=== PATIENT | male | born 2000 | race Hispanic/Latino ===

== ENCOUNTER 2018-06-01 09:55 | Emergency (ER) | payer MEDICAID ==
--- NOTE | 2018-06-01 11:08 | Emergency Department Report ---
ED Psych HPI - General Chief Complaint: Psych Stated Complaint: SUICIDAL THOUGHTS Time Seen by Provider: 06/01/18 10:47 Source: patient Mode of arrival: Ambulatory Limitations: No Limitations - History of Present Illness Initial Comments: Patient said he started Suicidal thoughts this morning. He also says he has history of depression, schizoaffective disorder, schizophrenia and bipolar disorder. MD Complaint: suicidal ideation, feels depressed -: Sudden, This morning Associated Psychiatric Symptoms: depression, suicidal ideation History of same: Yes Quality: constant Improves With: none Worsens With: none Associated Symptoms: denies other symptoms Treatments Prior to Arrival: none If Self Harm: admits thoughts of - Related Data Home Medications Medication Instructions Recorded Confirmed Last Taken Clonidine HCl [Catapres] 0.1 mg BID 06/01/18 06/01/18 06/01/18 07:00 Diphenhydramine HCl [Nighttime 50 mg PO HS 06/01/18 06/01/18 05/31/18 20:00 Sleep Aid 50MG] FLUoxetine HCL [Fluoxetine HCl] 20 mg PO DAILY 06/01/18 06/01/18 06/01/18 07:00 Haloperidol [Haldol] 5 mg PO 06/01/18 06/01/18 05/31/18 20:00 Haloperidol [Haldol] 10 mg PO [facility] 06/01/18 06/01/18 06/01/18 07:00 Lisinopril [Prinivil] 5 mg PO DAILY 06/01/18 06/01/18 06/01/18 07:00 Metformin HCl 500 mg PO BID 06/01/18 06/01/18 06/01/18 07:00 Pantoprazole Sodium 40 mg PO BID 06/01/18 06/01/18 06/01/18 07:00 hydrOXYzine PAMOATE [Vistaril] 50 mg PO BID 06/01/18 06/01/18 06/01/18 07:00 hydroCHLOROthiazide 25 mg PO DAILY 06/01/18 06/01/18 06/01/18 07:00 [Hydrochlorothiazide] Previous Rx's Medication Instructions Recorded Last Taken Type Ciprofloxacin HCl [Cipro] 500 mg PO BID #20 tablet 06/01/18 Unknown Rx Allergies Allergy/AdvReac Type Severity Reaction Status Date / Time cefprozil [From Cefzil] Allergy Mild Rash Verified 06/01/18 12:50 ED Review of Systems ROS: Stated complaint: SUICIDAL THOUGHTS Other details as noted in HPI Comment: All other systems reviewed and negative Constitutional: denies: chills, fever Eyes: denies: eye pain ENT: denies: ear pain Respiratory: denies: cough, orthopnea, shortness of breath Cardiovascular: denies: chest pain, palpitations, dyspnea on exertion, syncope Endocrine: no symptoms reported Gastrointestinal: denies: abdominal pain, nausea, vomiting, diarrhea, constipation, hematemesis Genitourinary: denies: urgency, dysuria, frequency Musculoskeletal: denies: back pain, joint swelling Skin: denies: rash, lesions Neurological: denies: headache, weakness, numbness, paresthesias, confusion, abnormal gait Psychiatric: depression, suicidal thoughts. denies: anxiety, auditory hallucinations, visual hallucinations, homicidal thoughts Hematological/Lymphatic: denies: easy bleeding, easy bruising ED Past Medical Hx - Medications Home Medications: Home Medications Medication Instructions Recorded Confirmed Last Taken Type Ciprofloxacin HCl [Cipro] 500 mg PO BID #20 tablet 06/01/18 Unknown Rx Clonidine HCl [Catapres] 0.1 mg BID 06/01/18 06/01/18 06/01/18 07:00 History Diphenhydramine HCl [Nighttime 50 mg PO HS 06/01/18 06/01/18 05/31/18 20:00 History Sleep Aid 50MG] FLUoxetine HCL [Fluoxetine HCl] 20 mg PO DAILY 06/01/18 06/01/18 06/01/18 07:00 History Haloperidol [Haldol] 5 mg PO HS 06/01/18 06/01/18 05/31/18 20:00 History Haloperidol [Haldol] 10 mg PO QA 06/01/18 06/01/18 06/01/18 07:00 History Lisinopril [Prinivil] 5 mg PO DAILY 06/01/18 06/01/18 06/01/18 07:00 History Metformin HCl 500 mg PO BID 06/01/18 06/01/18 06/01/18 07:00 History Pantoprazole Sodium 40 mg PO BID 06/01/18 06/01/18 06/01/18 07:00 History hydrOXYzine PAMOATE [Vistaril] 50 mg PO BID 06/01/18 06/01/18 06/01/18 07:00 History hydroCHLOROthiazide 25 mg PO DAILY 06/01/18 06/01/18 06/01/18 07:00 History [Hydrochlorothiazide] ED Physical Exam - General General appearance: alert, in no apparent distress, obese - Head Head exam: Present: atraumatic, normocephalic, normal inspection - Eye Eye exam: Present: normal appearance, PERRL, EOMI Pupils: Present: normal accommodation - ENT ENT exam: Present: normal exam, normal orophraynx, mucous membranes moist - Neck Neck exam: Present: normal inspection, full ROM. Absent: tenderness - Respiratory Respiratory exam: Present: normal lung sounds bilaterally. Absent: respiratory distress, wheezes, rales, rhonchi, stridor - Cardiovascular Cardiovascular Exam: Present: normal rhythm, tachycardia, normal heart sounds - GI/Abdominal GI/Abdominal exam: Present: soft, normal bowel sounds. Absent: distended, tenderness, guarding, rebound, rigid - Extremities Exam Extremities exam: Present: normal inspection, full ROM, normal capillary refill. Absent: tenderness - Back Exam Back exam: Present: normal inspection, full ROM. Absent: tenderness - Neurological Exam Neurological exam: Present: alert, oriented X3, CN II-XII intact - Psychiatric Psychiatric exam: Present: normal affect, depressed, suicidal ideation. Absent : agitated, anxious, flat affect, manic, homicidal ideation - Skin Skin exam: Present: warm, dry, intact, normal color. Absent: rash ED Course Vital Signs 06/01/18 10:40 Temperature 97.5 F L Pulse Rate 104 H Respiratory 20 Rate Blood Pressure 114/57 Blood Pressure 114/57 [Right] O2 Sat by Pulse 96 Oximetry - Reevaluation(s) Reevaluation #1: 06/01/18 18:28 Patient is medically cleared for psychiatric evaluation. ED Medical Decision Making - Lab Data Result diagrams: 06/01/18 12:06 06/01/18 17:00 - Medical Decision Making Suicide Ideation. Critical care attestation.: If time is entered above; I have spent that time in minutes in the direct care of this critically ill patient, excluding procedure time. ED Disposition Clinical Impression: Suicide ideation, History of depression, History of schizophrenia, History of schizoaffective disorder, History of depressed bipolar disorder UTI (urinary tract infection) Qualifiers: Urinary tract infection type: acute cystitis Hematuria presence: without hematuria Qualified Code(s): N30.00 - Acute cystitis without hematuria Disposition: DC/TX-65 PSY HOSP/PSY UNIT Is pt being admited?: No Does the pt Need Aspirin: No Condition: Stable Prescriptions: Ciprofloxacin HCl [Cipro] 500 mg PO BID #20 tablet Referrals: PRIMARY CARE [Primary Care Provider] - 3-5 Days Time of Disposition: 18:28
[2018-06-01 11:28] LABS: Bacteria,Urine 1+ /HPF (Negative); Bilirubin,Urine NEG (Negative); Blood,Urine SM (Negative); Color,Urine Amber (Yellow); Hyaline Casts,Urine 1 /LPF; Mucus,Urine FEW /HPF
[2018-06-01 11:34] LABS: Amphetamine Screen,Urine PRESUMPTIVE NEGATIVE; Benzodiazepines Screen,Urine PRESUMPTIVE NEGATIVE; Cannabinoid Screen,Urine PRESUMPTIVE NEGATIVE; Cocaine Screen,Urine PRESUMPTIVE NEGATIVE; Methadone Screen,Urine PRESUMPTIVE NEGATIVE; Opiate Screen,Urine PRESUMPTIVE NEGATIVE
[2018-06-01 12:43] LABS: Basophils % (Auto) 0.6 % (0.0-1.8); Hematocrit 46.7 % (35.5-45.6); Hemoglobin 15.8 gm/dl (11.8-15.2); Lymphocytes # (Auto) 0.8 K/mm3 (1.2-5.4); Lymphocytes % (Auto) 11.9 % (13.4-35.0); Mean Corpuscular HGB Conc 34 % (32-34); Mean Corpuscular Hemoglobin 29 pg (28-32); Mean Corpuscular Volume 85 fl (84-94); Monocytes # (Auto) 0.6 K/mm3 (0.0-0.8); Monocytes % (Auto) 8.3 % (0.0-7.3); Platelet Count 261 K/mm3 (140-440); Red Blood Count 5.47 M/mm3 (3.65-5.03); Red Cell Distribution Width 13.5 % (13.2-15.2)
[2018-06-01] MEDS ORDERED: ZOFRAN ODT PO ONE (12:46)
[2018-06-01 12:50] LABS: Albumin 5.3 g/dL (3.9-5); Calcium 10.4 mg/dL (8.4-10.2)
[2018-06-01] MEDS ORDERED: NACL 0.9% 1000 ML 1,000 ML IV ONE ×2 (12:53)
[2018-06-01] MEDS ORDERED: LEVAQUIN 750MG/150ML 750 MG/150 ML BAG IV ONE (12:53)
--- NOTE | 2018-06-01 15:07 | Cat Scan Report ---
FINAL REPORT EXAM: CT ABDOMEN PELVIS WO CON HISTORY: Vomiting TECHNIQUE: CT of the abdomen and pelvis was performed without intravenous contrast. Reconstructions were included in the coronal and sagittal planes. PRIORS: None. FINDINGS: Lower thorax: The lung bases are clear. The visualized portions of the heart are normal. Liver: The liver is diffusely low in attenuation consistent with hepatic steatosis. The liver is enlarged measuring 20.5 centimeters. No intrahepatic biliary duct dilation. No focal hepatic lesions. Gallbladder/ biliary system: No cholelithiasis. The common bile duct appears nondilated. Spleen: No splenic lesions are seen. Pancreas: No pancreatic lesions are seen. No pancreatic duct dilation. Kidneys: No renal masses, cysts or hydronephrosis. No renal or ureteral calcifications. Adrenal glands: No adrenal masses. Vasculature: The abdominal aorta is nondilated. Lymph nodes: No enlarged lymph nodes are seen in the abdomen or pelvis. Bowel, mesentery, peritoneum: No bowel obstruction. No free fluid or free air. The appendix is normal. No colonic diverticulosis. No bowel wall thickening. Urinary bladder: There is diffuse urinary bladder wall thickening. Pelvis: Normal anatomy is noted. No masses. Abdominal wall: No abdominal wall hernia or other subcutaneous findings. Bones: Bilateral L5 pars interarticularis defects are seen. There is minimal grade 1 anterolisthesis of L5 on S1. there are bilateral L2 pars interarticularis defects. No spondylolisthesis is seen at this level. IMPRESSION: 1. Hepatic steatosis and hepatomegaly. 2. Diffuse urinary bladder wall thickening which can be seen in cystitis or bladder outlet obstruction. 3. Bilateral L5 pars interarticularis defects with grade 1 anterolisthesis of L5 on S1. Bilateral L2 pars interarticularis defects without spondylolisthesis.
[2018-06-01 18:02] LABS: BUN/Creatinine Ratio 21; Blood Urea Nitrogen 31 mg/dL (9-20); Calcium 9.3 mg/dL (8.4-10.2); Hemolysis Index 6
[2018-06-02 02:00] VITALS: BP 121/85
== END 2018-06-02 01:50 ==
LOC: ED 09:55
DX: N39.0 Urinary tract infection, site not specified (principal); F31.9 Bipolar disorder, unspecified; F25.9 Schizoaffective disorder, unspecified; Z88.8 Allergy status to other drugs, medicaments and biological substances
CPT/HCPCS: 36415; 74176; 80048; 80053; 80307; 81001; 82550; 84443; 85025; 96365; 99285; G0480; J1956; J7030; 80320; 96366; Q0162

== ENCOUNTER 2018-06-07 18:14 | Emergency (ER) | payer MEDICAID ==
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
[2018-06-07 19:12] LABS: Basophils % (Auto) 0.5 % (0.0-1.8); Hematocrit 39.9 % (35.5-45.6); Hemoglobin 13.5 gm/dl (11.8-15.2); Lymphocytes # (Auto) 1.4 K/mm3 (1.2-5.4); Lymphocytes % (Auto) 25.8 % (13.4-35.0); Mean Corpuscular HGB Conc 34 % (32-34); Mean Corpuscular Hemoglobin 29 pg (28-32); Mean Corpuscular Volume 86 fl (84-94); Monocytes # (Auto) 0.6 K/mm3 (0.0-0.8); Monocytes % (Auto) 9.9 % (0.0-7.3); Platelet Count 181 K/mm3 (140-440); Red Blood Count 4.66 M/mm3 (3.65-5.03); Red Cell Distribution Width 12.9 % (13.2-15.2)
[2018-06-07 19:41] LABS: Alanine Aminotransferase 221 units/L (7-56); Albumin 4.7 g/dL (3.9-5); BUN/Creatinine Ratio 15; Blood Urea Nitrogen 22 mg/dL (9-20); Calcium 9.5 mg/dL (8.4-10.2)
[2018-06-07 19:41] LABS: Bilirubin,Urine NEG (Negative); Blood,Urine NEG (Negative); Color,Urine Amber (Yellow); Hyaline Casts,Urine 31 /LPF; Mucus,Urine FEW /HPF
[2018-06-07 19:42] LABS: Hemolysis Index 10
[2018-06-07 19:47] LABS: Amphetamine Screen,Urine PRESUMPTIVE NEGATIVE; Benzodiazepines Screen,Urine PRESUMPTIVE NEGATIVE; Cannabinoid Screen,Urine PRESUMPTIVE NEGATIVE; Cocaine Screen,Urine PRESUMPTIVE NEGATIVE; Methadone Screen,Urine PRESUMPTIVE NEGATIVE; Opiate Screen,Urine PRESUMPTIVE NEGATIVE
[2018-06-07] MEDS ORDERED: K-DUR PO ONE (20:35)
[2018-06-07] MEDS: GLUCOPHAGE PO SCH (20:51)
[2018-06-07] MEDS: BENADRYL PO SCH (22:01)
[2018-06-07] MEDS: CATAPRES PO SCH (22:01)
[2018-06-07] MEDS: VISTARIL PO SCH (22:02)
[2018-06-07] MEDS: HALDOL PO SCH (22:02)
[2018-06-08] MEDS: GLUCOPHAGE PO SCH ×2 (08:45→17:01)
[2018-06-08] MEDS: CATAPRES PO SCH ×2 (09:36→23:37)
[2018-06-08] MEDS: HCTZ PO SCH (09:36)
[2018-06-08] MEDS: PROzac PO SCH (09:36)
[2018-06-08] MEDS: ZESTRIL PO SCH (09:36)
[2018-06-08] MEDS: HALDOL PO SCH ×2 (09:36→23:37)
[2018-06-08] MEDS: VISTARIL PO SCH ×2 (09:36→23:37)
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
[2018-06-08] MEDS: BENADRYL PO SCH (23:36)
[2018-06-09] MEDS: GLUCOPHAGE PO SCH ×2 (11:50→19:03)
[2018-06-09] MEDS: VISTARIL PO SCH ×2 (11:50→22:41)
[2018-06-09] MEDS: CATAPRES PO SCH ×2 (11:50→22:41)
[2018-06-09] MEDS: PROzac PO SCH (11:50)
[2018-06-09] MEDS: ZESTRIL PO SCH (11:50)
[2018-06-09] MEDS: HCTZ PO SCH (11:50)
--- NOTE | 2018-06-09 12:28 | Progress Note ---
Subjective - Reason for Consult Consult date: 06/09/18 Reason for consult: Psychiatry Follow-up - Chief Complaint Chief complaint: "I don't know what to think" 17-year-old male who presents to the emergency room with SI/HI's. Today the patient is calm during the assessment. He stated that he isn't sure if he want to kill himself when asked. He denies HI's. He could not elaborate why he maybe suicidal. He stated that he was hearing voices yesterday telling him to harm himself. He denies a suicide plan. He acknowledged a previous suicide attempt in the past. He denies VH's. He denies any side effects of his medications. Mental Status Exam - Vital signs Last Vital Signs Temp 98.2 F 06/08/18 20:31 Pulse 77 06/08/18 23:37 Resp 16 06/08/18 20:31 BP 113/58 06/08/18 23:37 Pulse Ox 100 06/08/18 20:31 - Exam Narrative exam: MSE: Appearance: calm Behavior: regular eye contact Speech: regular rate and tone Mood: "I don't know" Affect: dysphoric Thought Process: circumstantial Thought Content: denies HI's and VH's, intermittent AH's Motor Activity: sitting up in the bed Cognition: A/O x 3 Insight: poor Judgment: poor Assessment and Plan Impression: Hx of Schizoaffective DO. Today the patient is calm during the assessment. The patient would not confirm or deny SI's. DDx: R/O Bipolar DO with psychosis Recommendations/Plan: Initiate 1013 with placement to inpatient psy services. Continue home medications Clonidine 0.1 mg PO Q12hrs for anxiety, Prozac 20 mg PO QAM for depression/anxiety, Benadryl 50 mg PO HS for sleep/prevention for eps prevention, Haldol 10 mg PO QAM for psychosis, and Haldol 5 mg PO HS for psychosis. Discussed possible sucidality/medication induced mikaela reference Prozac with the patient.
[2018-06-09] MEDS: BENADRYL PO SCH (22:42)
[2018-06-09] MEDS: HALDOL PO SCH (23:00)
[2018-06-10] MEDS: HALDOL PO SCH ×3 (07:46→22:36)
[2018-06-10] MEDS: GLUCOPHAGE PO SCH ×2 (09:05→17:11)
[2018-06-10] MEDS: CATAPRES PO SCH ×2 (11:02→22:34)
[2018-06-10] MEDS: VISTARIL PO SCH ×2 (11:03→22:36)
[2018-06-10] MEDS: PROzac PO SCH (11:03)
[2018-06-10] MEDS: ZESTRIL PO SCH (11:03)
[2018-06-10] MEDS: HCTZ PO SCH (11:03)
--- NOTE | 2018-06-10 13:32 | Progress Note ---
Subjective - Reason for Consult Consult date: 06/10/18 Reason for consult: Psychiatry Follow-up - Chief Complaint Chief complaint: "I think I'm getting better" 17-year-old male who presents to the emergency room with SI/HI's. Today the patient is calm and cooperative during the assessment. He stated that he "maybe" getting better. He stated that he will handle issues in a different manner at his long term (emotional trigger). He denies SI/HI's and AVH's. He denies any side effects of his medications. He denies any abuse from staff or occupants at his long term. Mental Status Exam - Vital signs Last Vital Signs Temp 98.1 F 06/09/18 21:00 Pulse 104 H 06/10/18 11:03 Resp 18 06/09/18 21:00 BP 126/85 06/10/18 11:03 Pulse Ox 98 06/09/18 21:00 - Exam Narrative exam: MSE: Appearance: calm, cooperative Behavior: regular eye contact Speech: regular rate and tone Mood: "better" Affect: congruent to mood Thought Process: circumstantial Thought Content: denies SI/HI's and AVH's Motor Activity: sitting up in the bed Cognition: A/O x 3 Insight: variable Judgment: variable Assessment and Plan Impression: Hx of Schizoaffective DO. Today the patient is calm and cooperative during the assessment. DDx: R/O Bipolar DO with psychosis Recommendations/Plan: Reevaluate 1013 in 24 hours to determine proper dispo. Continue home medications Clonidine 0.1 mg PO Q12hrs for anxiety, Prozac 20 mg PO QAM for depression/anxiety, Benadryl 50 mg PO HS for sleep/prevention for eps prevention, Haldol 10 mg PO QAM for psychosis, and Haldol 5 mg PO HS for psychosis. Discussed possible sucidality/medication induced mikaela reference Prozac with the patient.
[2018-06-10 19:36] LABS: Alanine Aminotransferase 222 units/L (7-56); Albumin 4.5 g/dL (3.9-5); BUN/Creatinine Ratio 22; Blood Urea Nitrogen 20 mg/dL (9-20); Hemolysis Index 18
[2018-06-10] MEDS: BENADRYL PO SCH (22:36)
[2018-06-11] MEDS: GLUCOPHAGE PO SCH ×2 (08:54→17:25)
[2018-06-11] MEDS: HALDOL PO SCH ×2 (10:04→21:37)
[2018-06-11] MEDS: PROzac PO SCH (10:04)
[2018-06-11] MEDS: CATAPRES PO SCH ×2 (10:04→21:36)
[2018-06-11] MEDS: HCTZ PO SCH (10:04)
[2018-06-11] MEDS: ZESTRIL PO SCH (10:04)
[2018-06-11] MEDS: VISTARIL PO SCH ×2 (10:04→21:37)
--- NOTE | 2018-06-11 14:08 | Progress Note ---
Subjective - Reason for Consult Consult date: 06/11/18 Reason for consult: Psychiatric Follow-up Evaluation - Chief Complaint Chief complaint: "Pretty good." Patient is a 17-year-old male who presents to the emergency room with SI/HI's. Today the patient is calm and cooperative during the assessment. Currently, patient denies suicidal/homicidal ideations. Patient last had suicidal/homicidal ideations last night, 06-10-18. Patient verbalizes that he feels better. He states, " I live in a senior care to help me manage my mental health." He denies SI/HI's, AVH's, and delusions. Patient is medication compliant.No side effects are noted/reported. He denies any abuse from staff or occupants at his senior care. Mental Status Exam - Vital signs Last Vital Signs Temp 98.4 F 06/11/18 09:51 Pulse 101 H 06/11/18 10:04 Resp 20 06/11/18 09:51 BP 133/79 06/11/18 10:04 Pulse Ox 100 06/11/18 09:51 - Exam Narrative exam: Mental Status Exam General Appearance: Causally Dressed-hospital gown Eye Contact: Intermittent Orientation: Alert and oriented x 4 (person, place, time, date, and situation) Attitude/Behavior: Cooperative Sensorium: Distracted-less Psychomotor & Musculoskeletal Activity: Sitting on bed Mood: "pretty good." Affect: Constricted Speech/Language: Regular rate and tone Thought Processes: Circumstantial Thought Content: Impoverished Perception: Patient denies A/V/T hallucinations Concentration/Attention: Impaired Suicidal Ideations/Plan: + suicidal ideation (intermittent)/decreasing Homicidal Ideations/Plan: + homicidal ideations ( intermittent)/decreasing Judgment: Intermittent Insight: Intermittent Assessment and Plan Impression: Hx of Schizoaffective DO. Today the patient is calm and cooperative during the assessment. He denies SI/HI's, A/VH's, and delusions. DDx: R/O Bipolar DO with psychosis Recommendations/Plan: 1. Reevaluate/reassess 1013 in 24 hours to determine proper disposition. 2. Continue home medications Clonidine 0.1 mg PO Q12hrs for anxiety, Prozac 20 mg PO QAM for depression/anxiety, Benadryl 50 mg PO HS for sleep/prevention for eps prevention, Haldol 10 mg PO QAM for psychosis, and Haldol 5 mg PO HS for psychosis. Discussed possible sucidality/medication induced mikaela reference Prozac with the patient. 3. Will continue to monitor psychosis, mood, sleep, appetite, compliance, and side effects. 4. Social work informed to notify senior care that if patient is in no danger to self or others he will be discharged on 06-12-2018. Disposition: Patient accepted to [facility] in [place], [place]. Case staffed with Dr. Jennifer Leiva.
[2018-06-11] MEDS: BENADRYL PO SCH (21:36)
[2018-06-12] MEDS: GLUCOPHAGE PO SCH (10:32)
[2018-06-12] MEDS: CATAPRES PO SCH (10:34)
[2018-06-12] MEDS: HCTZ PO SCH (10:35)
[2018-06-12] MEDS: VISTARIL PO SCH (10:35)
[2018-06-12] MEDS: HALDOL PO SCH (10:35)
[2018-06-12] MEDS: PROzac PO SCH (10:35)
[2018-06-12] MEDS: ZESTRIL PO SCH (10:36)
[2018-06-12 13:16] VITALS: BP 98/53
== END 2018-06-12 10:00 | disposition other institution (70) ==
LOC: EEVIPCON 18:14 → ED 18:14
DX: F25.9 Schizoaffective disorder, unspecified (principal); F31.30 Bipolar disorder, current episode depressed, mild or moderate severity, unspecified; F90.9 Attention-deficit hyperactivity disorder, unspecified type; J45.909 Unspecified asthma, uncomplicated; F84.5 Asperger's syndrome; E11.9 Type 2 diabetes mellitus without complications; F17.200 Nicotine dependence, unspecified, uncomplicated; Z88.5 Allergy status to narcotic agent
CPT/HCPCS: 36415; 80053; 80307; 81001; 82962; 85025; 99285; G0480; 80320; Q0177